=== PATIENT | male | born 1955 | race African-American/Black ===

== ENCOUNTER 2017-12-05 06:35 | Inpatient (IN) | payer MEDICARE, MEDICAID ==
[2017-12-05] MEDS ORDERED: cefOXitin 2 GM Vial ONE (06:48)
[2017-12-05] MEDS ORDERED: Albuterol/Ipratropium 3.0-0.5 MG/3 ML Neb Soln NEB ONE (07:00)
[2017-12-05] MEDS ORDERED: Scopolamine 1.5 MG Transdermal Patch TOP SCH (07:00)
[2017-12-05] MEDS ORDERED: Gabapentin 300 MG Cap PO ONE (07:00)
[2017-12-05] MEDS ORDERED: Acetaminophen 500 MG Tab PO ONE (07:00)
[2017-12-05] MEDS ORDERED: Celecoxib 200 MG Cap PO ONE (07:00)
[2017-12-05] MEDS ORDERED: cefOXitin 2 GM in Sodium Chloride 0.9% 50 ML IV ONE (07:30)
[2017-12-05] MEDS ORDERED: Dextrose 5%-Lactated Ringers 1,000 ML IV SCH (07:30)
[2017-12-05] MEDS ORDERED: fentaNYL 250 MCG/5 ML SDV ONE (07:34)
[2017-12-05] MEDS ORDERED: Dexamethasone 4 MG/ML SDV ONE (07:35)
[2017-12-05] MEDS ORDERED: Propofol 200 MG/20 ML SDV ONE (07:35)
[2017-12-05] MEDS ORDERED: Rocuronium 50 MG/5 ML Vial ONE ×2 (07:35→10:41)
[2017-12-05] MEDS ORDERED: Neostigmine Methylsulfate 1 MG/ML 5 ML Syringe ONE (07:35)
[2017-12-05] MEDS ORDERED: Glycopyrrolate 0.2 MG/ML 5 ML MDV ONE (07:35)
[2017-12-05] MEDS ORDERED: Ondansetron 4 MG/2 ML SDV ONE (07:35)
[2017-12-05] MEDS ORDERED: Succinylcholine 200 MG/10 ML MDV ONE (07:35)
[2017-12-05] MEDS ORDERED: Ropivacaine 60 ML, Dexamethasone 8 MG, EPINEPHrine 0.4 MG, Sodium Chloride 0.9% 17.6 ML NERVRT SCH ×4 (08:15)
[2017-12-05] MEDS ORDERED: Ketamine 500 MG/5 ML MDV IV SCH (08:15)
[2017-12-05] MEDS ORDERED: Lidocaine 0.4%/D5W 2 GM/500 ML BAG IV SCH (08:15)
[2017-12-05] MEDS ORDERED: Lidocaine 2% 100 MG/5 ML Syringe IVPUSH ONE (08:15)
[2017-12-05] MEDS ORDERED: Lactated Ringers 1,000 ML ONE (09:54)
[2017-12-05] MEDS ORDERED: Insulin Aspart 100 Units/ML 3 ML Pen SUBCUT SCH (12:45)
[2017-12-05] MEDS ORDERED: Labetalol 20 MG/4 ML Syringe IVPUSH PRN (14:00)
[2017-12-05] MEDS ORDERED: hydrOXYzine HCl 100 MG/2 ML SDV IM PRN (14:00)
[2017-12-05] MEDS ORDERED: Albuterol/Ipratropium 3.0-0.5 MG/3 ML Neb Soln INH PRN (14:00)
[2017-12-05] MEDS ORDERED: Ondansetron 4 MG/2 ML SDV IVPUSH PRN (14:00)
[2017-12-05] MEDS ORDERED: diphenhydrAMINE 50 MG/ML SDV IVPUSH PRN (14:00)
[2017-12-05] MEDS ORDERED: Metoclopramide 10 MG/2 ML SDV IVPUSH PRN (14:00)
[2017-12-05] MEDS: Albuterol/Ipratropium 3.0-0.5 MG/3 ML Neb Soln INH SCH ×2 (15:06→21:17)
[2017-12-05] MEDS: Gabapentin 250 MG/5 ML Solution ML 470 ML Bottle PO SCH ×2 (15:47→21:17)
[2017-12-05] MEDS: SCOPOLAMINE PATCH CHECK TOP SCH (15:48)
[2017-12-05] MEDS: Heparin Sodium 5,000 Units/ML Vial SUBCUT SCH ×2 (15:48→23:25)
[2017-12-05] MEDS: cefOXitin 2 GM in Sodium Chloride 0.9% 50 ML IV SCH ×2 (15:48→21:17)
[2017-12-05] MEDS: Acetaminophen Soln 650 MG/20.3 ML UD Cup PO SCH ×2 (15:49→21:18)
[2017-12-05] MEDS: Pantoprazole 40 MG Vial IVPUSH SCH (15:49)
[2017-12-05] MEDS ORDERED: MVI, Adult with Vitamin K 10 ML, Thiamine 200 MG, Chromium/Copper/Mang/Selen/Zn 1 ML in... IV SCH ×4 (16:00)
[2017-12-05] MEDS: Insulin Aspart 100 Units/ML 3 ML Pen SUBCUT PRN ×2 (16:56→22:10)
[2017-12-05] MEDS ORDERED: LORazepam 2 MG/ML SDV IVPUSH PRN (19:28)
[2017-12-05] MEDS: Dutasteride 0.5 MG Cap PO SCH (21:18)
[2017-12-05] MEDS ORDERED: Trospium 20 MG Tab PO ONE (21:26)
[2017-12-05] MEDS: Dextrose 5%-Lactated Ringers 1,000 ML IV SCH (22:41)
[2017-12-06] MEDS: cefOXitin 2 GM in Sodium Chloride 0.9% 50 ML IV SCH ×2 (02:44→08:03)
[2017-12-06] MEDS ORDERED: Iohexol 647 MG/ML 50 ML SDV PO PRN (02:51)
[2017-12-06] MEDS: Acetaminophen Soln 650 MG/20.3 ML UD Cup PO SCH ×4 (04:03→21:52)
[2017-12-06] MEDS: Dextrose 5%-Lactated Ringers 1,000 ML IV SCH ×2 (04:38→12:24)
[2017-12-06] MEDS: Insulin Aspart 100 Units/ML 3 ML Pen SUBCUT PRN ×2 (04:42→11:45)
[2017-12-06] MEDS: Albuterol/Ipratropium 3.0-0.5 MG/3 ML Neb Soln INH SCH ×4 (07:25→21:51)
[2017-12-06] MEDS: Gabapentin 250 MG/5 ML Solution ML 470 ML Bottle PO SCH ×3 (08:07→21:50)
[2017-12-06] MEDS: Celecoxib 200 MG Cap PO SCH (08:07)
[2017-12-06] MEDS: Heparin Sodium 5,000 Units/ML Vial SUBCUT SCH ×3 (08:08→23:18)
[2017-12-06] MEDS: Trospium 20 MG Tab PO SCH ×2 (09:51→17:15)
[2017-12-06] MEDS: SCOPOLAMINE PATCH CHECK TOP SCH (09:51)
[2017-12-06] MEDS ORDERED: Magnesium Sulfate/Water 2 GM in Premix Bag 1 BAG IV SCH (10:00)
[2017-12-06] MEDS: Losartan 50 MG Tab PO SCH (11:48)
[2017-12-06] MEDS: Furosemide 40 MG Tab PO SCH (11:48)
[2017-12-06] MEDS: Metoprolol Succinate 50 MG Tab.ER PO SCH (11:49)
[2017-12-06] MEDS ORDERED: Primidone 50 MG Tab PO SCH (12:00)
[2017-12-06] MEDS: Pantoprazole 40 MG Vial IVPUSH SCH (14:59)
[2017-12-06] MEDS: MVI, Adult with Vitamin K 10 ML, Thiamine 200 MG, Chromium/Copper/Mang/Selen/Zn 1 ML in... IV SCH ×4 (17:14)
[2017-12-06] MEDS ORDERED: Trospium 20 MG Tab PO ONE (21:26)
[2017-12-06] MEDS: Dutasteride 0.5 MG Cap PO SCH (21:51)
[2017-12-07] MEDS: Acetaminophen Soln 650 MG/20.3 ML UD Cup PO SCH ×4 (04:16→17:23)
[2017-12-07] MEDS ORDERED: Coagulation Factor VIIa Recombinant (per MCG) 2 MG Vial IVPUSH ONE (07:15)
[2017-12-07] MEDS: Albuterol/Ipratropium 3.0-0.5 MG/3 ML Neb Soln INH SCH ×4 (08:01→20:33)
[2017-12-07] MEDS: Trospium 20 MG Tab PO SCH ×2 (08:35→17:11)
[2017-12-07] MEDS ORDERED: Cyanocobalamin (Vitamin B12) 1,000 MCG/ML SDV IM ONE (09:00)
[2017-12-07] MEDS: Dextrose 5%-Lactated Ringers 1,000 ML IV SCH (09:31)
[2017-12-07] MEDS: Gabapentin 250 MG/5 ML Solution ML 470 ML Bottle PO SCH ×3 (11:45→20:48)
[2017-12-07] MEDS: SCOPOLAMINE PATCH CHECK TOP SCH (11:46)
[2017-12-07] MEDS: Metoprolol Succinate 50 MG Tab.ER PO SCH (13:23)
[2017-12-07] MEDS: Furosemide 40 MG Tab PO SCH (13:23)
[2017-12-07] MEDS: Celecoxib 200 MG Cap PO SCH (13:24)
[2017-12-07] MEDS: Losartan 50 MG Tab PO SCH (13:25)
[2017-12-07] MEDS: Pantoprazole 40 MG Delayed-Release Granules 1 Packet PO SCH ×2 (17:11→17:23)
[2017-12-07] MEDS: MVI, Adult with Vitamin K 10 ML, Thiamine 200 MG, Chromium/Copper/Mang/Selen/Zn 1 ML in... IV SCH ×4 (17:11)
[2017-12-07] MEDS: Dutasteride 0.5 MG Cap PO SCH (20:49)
[2017-12-08] MEDS: Acetaminophen Soln 650 MG/20.3 ML UD Cup PO SCH ×3 (00:06→11:37)
[2017-12-08] MEDS: Albuterol/Ipratropium 3.0-0.5 MG/3 ML Neb Soln INH SCH (07:24)
--- NOTE | 2017-12-08 07:56 | PN ---
DATE OF SERVICE: 12/06/2017 The patient has been afebrile with stable vital signs. No major problems noted overnight. Oral intake was fairly good. His urination appears to be satisfactory. Upper GI shows a little bit slow flow through the small bowel, but otherwise no problems were noted. We will go up to step-2 diet without solids today. Restart his pertinent oral medications with some additional inhalers, maximizing activity, and work with pulmonary toilet. Fletcher Dotson MD /[id number]
[2017-12-08] MEDS: Celecoxib 200 MG Cap PO SCH (08:41)
[2017-12-08] MEDS: Trospium 20 MG Tab PO SCH (08:41)
[2017-12-08] MEDS: Furosemide 40 MG Tab PO SCH (08:41)
[2017-12-08] MEDS: Losartan 50 MG Tab PO SCH (08:41)
[2017-12-08] MEDS: Gabapentin 250 MG/5 ML Solution ML 470 ML Bottle PO SCH (08:42)
[2017-12-08] MEDS: Metoprolol Succinate 50 MG Tab.ER PO SCH (08:42)
--- NOTE | 2017-12-08 08:54 | CR ---
UGI wo KUB HISTORY: eval R -Y GBP FINDINGS: After administration of oral contrast, upright views were obtained. Post operative changes gastric bypass. Surgical drains in place. No evidence for leak. There is some distention of small bow el in the left abdomen. This may represent postop ileus. IMPRESSION: No evidence for leak Small bowel distention may represent ileus. Short-term follow-up recommended
--- NOTE | 2017-12-08 09:19 | PN ---
DATE OF SERVICE: 12/07/2017 The patient has been overall stable with relatively good oral intake. He did have some bloody bowel movements this morning. I suspect this may be some old blood that occurred immediately postoperatively. He about the same, and his heart rates are in the 109 range, but that is what it has been running more or less throughout the entire postoperative period. We did give him a dose of activated factor VII, and we will recheck the hemoglobin at 1400 hours, with the hemoglobin this morning being 10.5. Heparin will be held as well. Otherwise, assuming that no further major problems occur, he will likely be ready for discharge home tomorrow. It would be good to have Dietary review the postoperative gastric bypass diet regimen with the patient, as well as his attendant, who is Rachelle Mcconnell. Fletcher Dotson MD Job #: [id number]
[2017-12-08 10:52] VITALS: BP 131/94
--- NOTE | 2017-12-08 11:46 | DISCH ---
ADMISSION DIAGNOSES: 1. Morbid obesity. 2. Unspecified polyarthropathy and polyarthritis. 3. Hidradenitis. 4. Adjustment disorder with mixed anxiety and depressed mood. 5. Chronic alcohol abuse, in remission. 6. Personality disorder. 7. Essential hypertension. 8. Nocturia. 9. Vitamin D deficiency. 10.Obstructive sleep apnea "treatment.". DISCHARGE DIAGNOSES: Laparoscopic gastric bypass surgery, liver biopsy, repair of diaphragmatic hernia, and excision of mediastinal lipoma for morbid obesity, hepatomegaly, diaphragmatic hernia, and mediastinal lipoma. Date of surgery, 12/05/2017. HISTORY: Rafa Sandy is a 61-year-old male with longstanding history of morbid obesity and increasing comorbidities. After preoperative evaluation and discussion of possible risks and possible complications, he wished to proceed with surgical procedure. HOSPITAL COURSE: Rafa had his surgery on 12/05/2017. He had no operative complications. On postoperative day #1, he was started on step-2 gastric bypass diet without cereal and he was started on his home medications. On 12/07/2017, he started to have bloody stools. His CBC was checked, he was given factor VII, and they seemed to slow down. On postoperative day #3, he did have, prior to discharge, one large maroon stool. Hemoglobin on the day of discharge was 9.5 and hematocrit 30.3. Vital signs were stable. He received dietary instruction. He was able to be discharged to home. PHYSICAL EXAMINATION: GENERAL: Rafa Sandy is a 61-year-old male. VITAL SIGNS: Height is 5 feet 7.5 inches. Weight is 357 pounds. BMI is 55. TPR 96.1, 91, 18, and blood pressure 129/73. HEENT: Negative. NECK: Supple. HEART: Regular rate and rhythm. LUNGS: Clear. ABDOMEN: Sutures intact. CHARISMA drain removed. Abdominal binder is on. EXTREMITIES: Revealed bilateral peripheral edema. DISPOSITION: Discharged to home. CONDITION: Stable and improving. FOLLOWUP APPOINTMENT: Cindy Grimaldo PA-C, on 12/12/2017 at 10 a.m. Hemoglobin at 9:30 before appointment. DISCHARGE MEDICATIONS: Home Medications: 1. Tylenol 650 mg q.6 hours. 2. Discontinue Celebrex. 3. Albuterol inhaler 2 puffs 4 times a day. 4. 10 mg oral daily. 5. Avodart 0.5 mg oral daily. 6. Lasix 80 mg oral daily p.r.n. for edema. 7. Gabapentin 600 three times a day. 8. Lorcet 10/, take one every 4 hours p.r.n. pain. 9. Cozaar, losartan, 50 mg oral daily. 10.Metoprolol-XL 100 mg daily. 11.Viagra 100 mg p.r.n. 12.VESIcare 10 mg oral daily. 13.Triamcinolone 0.1% cream use 3 times a day to affected area. 14.Bupropion 100 mg oral daily. 15.Benadryl 50 mg oral q.6 hours. 16.Discontinue taking tramadol while on [place], vitamin D3, and Celebrex. DISCHARGE DIET: Step-2 gastric bypass diet with no cereal until 12/22/2017. ACTIVITY: No lifting greater than 10 pounds for 2 weeks and then as tolerated. Other activity, walk 6 times daily inside your house. Driving after discharge, do not drive for 2 weeks. Shower/bathing, may shower. DISCHARGE INSTRUCTIONS: Notify provider of fever, nausea, or vomiting. Keep site clean and dry. Use incentive spirometer 10 times every hour while awake.
--- NOTE | 2017-12-08 16:41 | OR ---
DATE OF PROCEDURE: 12/05/2017 PREOPERATIVE DIAGNOSIS: Morbid obesity. POSTOPERATIVE DIAGNOSES: 1. Morbid obesity. 2. Marked hepatomegaly. 3. Paraesophageal diaphragmatic hernia. 4. Mediastinal lipoma. OPERATIVE PROCEDURE: 1. Laparoscopic Merna-en-Y gastric bypass along with gastroenterostomy (30024). 2. Emerson-Cut needle liver biopsy (79421). 3. Repair of paraesophageal diaphragmatic hernia (59151). 4. Excision of mediastinal lipoma (98569). ANESTHESIA: General. ASSISTANTS: Cindy Grimaldo PA-C and PAS. Melvina INDICATION FOR PROCEDURE: This is a 61-year-old male presenting with longstanding morbid obesity and increasingly significant comorbidities. After preoperative evaluation and discussion, he wished to proceed with a gastric bypass procedure. Potential risks including bleeding, infection, leaks from various GI tract closures, problems with bowel obstruction over time as well as possibility of cardiopulmonary, septic, or hemorrhagic complications leading to were all discussed, and the patient wishes to proceed. DETAILS OF PROCEDURE: The patient was taken to the operating room. After general endotracheal anesthesia was induced, he was placed in a lithotomy position. An orogastric tube was placed and the abdomen prepped and draped. At 15 cm inferior, 5 cm left of xiphoid process, a transverse incision was made and the peritoneal cavity entered under direct vision with an Optiview trocar inflated to 15 mmHg pressure with CO2. Laparoscope was reinserted. No underlying trocar insertion site injuries were seen. Following this, 5 additional trocars were placed across the upper mid abdomen and general exploration was undertaken. The patient was noted to have marked hepatomegaly with the liver volume being roughly 2 to 3 times normal and grossly fatty infiltrated. Emerson-Cut needle biopsies were obtained and the bleeding easily controlled with electrocautery. Using direct visualization of the needle and the correct location, bilateral subcostal transverse abdominis plane blocks were placed and attention was then taken to formation of the gastric bypass. The omentum was then divided in the midline up to the level of the transverse colon. This allowed identification of the small bowel to the ligament of Treitz. Small bowel was then traced out 200 cm distal to that point, was divided transversely with a AJITH stapler. Small bowel was then traced out an additional 200 cm where the [id number] enteroenterostomy accomplished with internal firing of the Endo-AJITH 60 mm stapler. The common opening was then closed transversely with the same stapler and the angles anastomosed, and mesenteric defect approximated with some 0 Ethibond sutures, reinforced with fibrin sealant. The Merna limb was brought through an antecolic antegastric approach up to the level of the gastroesophageal junction without tension. The liver was then retracted anteriorly. The patient was noted to have a moderate-sized paraesophageal diaphragmatic hernia containing some perigastric fat and gastric fundus in the plane anterior to the course of the remaining esophagus. This was reduced and peritoneum incised and reflected downward. The patient was noted to have a mediastinal lipoma in the plane of dissection, which was removed as well to facilitate a more satisfactory closure and the anterior repair of the diaphragmatic hernia was then accomplished with 0 Ethibond sutures reinforced with PTFE pledgets. The gastrointestinal balloon catheter was then inflated to 15 mL and pulled up snugly against the EG junction. Gastric wall over the apex balloon was then marked with electrocautery, and balloon catheter deflated and pulled up from the esophagus. The lesser omental tissue adjacent to the gastric cardia was incised following dissection behind the stomach at the level of the cauterized pao in the gastric cardia. Pouch formation was initiated with a transverse firing of the AJITH black load, the second firing was noted up to and through the angle of His for black loads, remaining firings up to and through the angle of His for purple loads. Upon completion of the pouch, both staple lines were noted to be intact. The anvil of the 25-mm EEA stapler was attached to a [place] sump type tube, the latter was brought down through the mouth and taken out through a small opening in the gastric pouch allowing the anvil likewise to be pulled down to within the gastric pouch. The divided end of the Merna limb was then opened and the main body of the EEA stapler passed several centimeters in the lumen of the small bowel, brought up the anvil, united with it, thus creating a gastrojejunostomy. Upon removal of the stapler, double donuts of mucosa were noted within it. The small bowel was closed off with a vascular staple line. Gastrojejunostomy was reinforced with some 3-0 Vicryl seromuscular stitch along with fibrin sealant. Leak test was accomplished with injection of 120 mL of air in the gastric pouch while submerged in cefoxitin-containing saline. No leaks were identified. A single Alfa- Hart drain was taken out through the left lateral trocar site and positioned adjacent to the gastric cardia and the remaining trocars were removed and peritoneal cavity deflated. Incisions were closed with 4-0 Vicryl skin stitch, which was also used to fix the drain. The patient was taken to the recovery room in satisfactory condition. There were no evident complications. Physician production administrative assistant, Cindy Grimaldo, played an essential role in assisting in this case, helping to position the patient, retract structures as needed, as well as suturing and cutting sutures when indicated. Her presence improved patient safety and decreased the operative time. Fletcher Dotson MD Job #: [id number]
== END 2017-12-08 12:15 | disposition home or self-care (01) | DRG 621 ==
LOC: JP.SDSSCHI 06:35 → JP.SDS 06:35 → EDSTATUS 07:15 → JP.2SS 11:30
PROVIDERS: ADMIT Surgery; ATTEND Surgery
PROC: 0D164ZA Bypass Stomach to Jejunum, Percutaneous Endoscopic Approach (ICD-10-PCS; principal; 2017-12-05)
PROC: 0FB04ZX Excision of Liver, Percutaneous Endoscopic Approach, Diagnostic (ICD-10-PCS; 2017-12-05)
PROC: 0BQT4ZZ Repair Diaphragm, Percutaneous Endoscopic Approach (ICD-10-PCS; 2017-12-05)
PROC: 0DB84ZZ Excision of Small Intestine, Percutaneous Endoscopic Approach (ICD-10-PCS; 2017-12-05)
PROC: 0DB63ZZ Excision of Stomach, Percutaneous Approach (ICD-10-PCS; 2017-12-05)
PROC: 0D164ZA Bypass Stomach to Jejunum, Percutaneous Endoscopic Approach (ICD-10-PCS; 2017-12-05)
PROC: 0WBC4ZX Excision of Mediastinum, Percutaneous Endoscopic Approach, Diagnostic (ICD-10-PCS; 2017-12-05)
PROC: 3E0T3BZ Introduction of Anesthetic Agent into Peripheral Nerves and Plexi, Percutaneous Approach (ICD-10-PCS; 2017-12-05)
DX: E66.01 Morbid (severe) obesity due to excess calories (principal); Z68.43 Body mass index [BMI] 50.0-59.9, adult; R16.0 Hepatomegaly, not elsewhere classified; K44.9 Diaphragmatic hernia without obstruction or gangrene; D17.4 Benign lipomatous neoplasm of intrathoracic organs; I10 Essential (primary) hypertension; G47.33 Obstructive sleep apnea (adult) (pediatric); Z79.891 Long term (current) use of opiate analgesic; R60.9 Edema, unspecified; G89.29 Other chronic pain; N40.1 Benign prostatic hyperplasia with lower urinary tract symptoms; F32.9 Major depressive disorder, single episode, unspecified; F41.9 Anxiety disorder, unspecified; Z87.891 Personal history of nicotine dependence; K76.0 Fatty (change of) liver, not elsewhere classified; M13.0 Polyarthritis, unspecified; F10.21 Alcohol dependence, in remission; F60.9 Personality disorder, unspecified; R35.1 Nocturia; E55.9 Vitamin D deficiency, unspecified; L73.2 Hidradenitis suppurativa
CPT/HCPCS: 36415; 74240; 74240-26; 80053; 82962; 83036; 83735; 84100; 85027; 86850; 86900; 86901; 94640; 94762; A9270-GY; C9113; J0171; J0330; J0694; J1100; J1644; J2001; J2060; J2405; J2704; J2710; J2795; J3010; J3410; J3411; J3420; J7030; J7042; J7050; J7120; J7189; J7620; Q9967

== ENCOUNTER 2019-01-18 22:44 | Emergency (ER) | payer MEDICARE, MEDICAID ==
[2019-01-18] MEDS ORDERED: Sodium Chloride 0.9% 500 ML IV ONE (22:48)
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
--- NOTE | 2019-01-18 23:19 | CRLCT ---
INDICATION: Head trauma TECHNIQUE: CT Head without i.v. contrast. COMPARISON: 12/21/15 FINDINGS: CSF space: The ventricles are normal for age. Brain: No evidence of mass, acute infarction or hemorrhage is seen. No mass-effect or midline shift is seen. The brain parenchyma is otherwise normal in appearance with preservation of the escalante-white matter junction. Calvarium: The visualized paranasal sinuses are well aerated. The mastoid air cells are clear. The visualized orbits are grossly unremarkable. The calvarium is unremarkable in appearance with no fractures identified. A moderate left occipital scalp hematoma is noted. IMPRESSION: 1. No evidence of acute infarction, intracranial hemorrhage, or mass-effect seen. Please note that all CT scans at this facility use dose modulation, iterative reconstruction, and/or weight-based dosing when appropriate to reduce radiation dose to as low as reasonably achievable. Dictated by: Patrick Davis MD @ 01/18/2019 23:19:15 (Electronically Signed)
[2019-01-18] MEDS ORDERED: NS + KCl 20mEq/L 1,000 ML IV SCH (23:45)
[2019-01-18] MEDS ORDERED: Potassium Chloride 10 MEQ Cap.ER PO ONE (23:52)
[2019-01-19 00:55] VITALS: BP 148/98; PULSE 98
== END 2019-01-19 01:10 | disposition home or self-care (01) ==
LOC: JP.ED 22:44
DX: S00.03XA Contusion of scalp, initial encounter (principal); E87.6 Hypokalemia; I10 Essential (primary) hypertension; M19.90 Unspecified osteoarthritis, unspecified site; E66.9 Obesity, unspecified; Z79.899 Other long term (current) drug therapy; Y08.89XA Assault by other specified means, initial encounter
CPT/HCPCS: 36415; 70450; 80053; 83735; 84484; 85027; 96361; 96365; 99284; A9270; G0480; J3480; J7040

== ENCOUNTER 2019-10-17 19:21 | Emergency (ER) | payer MEDICARE, MEDICAID ==
[2019-10-17 19:57] VITALS: BP 156/86; PULSE 101
--- NOTE | 2019-10-17 20:29 | EDM.PDOC ---
ED HPI GENERAL MEDICAL PROBLEM - General Chief Complaint: Abdominal Pain Stated Complaint: ABDOMINAL PAIN Time Seen by Provider: 10/17/19 20:25 Source of Information: Reports: Patient History Limitations: Reports: No Limitations - History of Present Illness INITIAL COMMENTS - FREE TEXT/NARRATIVE: Pt arrived with a bulge just above the umbilicus. Pt was not able to reduce it. This did happen once in the past but it went back by itself. It had been out about 1.5 hours. This was very painful. c Onset: Today, Sudden Duration: Hour(s): Location: Reports: Abdomen Associated Symptoms: Reports: Other ( severe pain Pt had no vomiting. ) Abdomen Pain Score (Numeric/FACES): 10 - Related Data Allergies Allergy/AdvReac Type Severity Reaction Status Date / Time No Known Allergies Allergy Verified 01/18/19 22:49 Home Meds: Home Meds Hydrocodone/Acetaminophen [Lorcet 10-650] 10 - 325 mg PO Q4H PRN 09/06/13 [ History] Sildenafil [Viagra] 100 mg PO BEDTIME PRN 09/06/13 [History] Solifenacin [Vesicare] 10 mg PO DAILY 09/06/13 [History] Triamcinolone Acetonide [Kenalog 0.1% Crm] 15 gm TRDERM TID 09/06/13 [History] Furosemide [Lasix] 80 mg PO DAILY PRN 10/29/13 [History] Gabapentin [Neurontin] 600 mg PO TID 12/21/15 [History] Losartan [Cozaar] 50 mg PO DAILY 12/21/15 [History] diphenhydrAMINE [Benadryl] 50 mg PO Q6H PRN 12/21/15 [History] Albuterol Sulfate [Proair Hfa] 2 puff PO QID 12/04/17 [History] Alfuzosin [Uroxatral] 10 mg PO DAILY 12/04/17 [History] Metoprolol Succinate [Toprol XL 100mg] 100 mg PO DAILY 12/04/17 [History] buPROPion [buPROPion XL] 150 mg PO DAILY 12/04/17 [History] Celecoxib [CeleBREX] 200 mg PO DAILY@0800 cap 12/08/17 [Rx] Potassium Chloride [Klor-Con] 40 meq PO BID 01/18/19 [History] Valsartan 1 tab PO DAILY 01/18/19 [History] traMADol HCl [Tramadol HCl] 1 tab PO Q6H PRN 01/18/19 [History] Past Medical History HEENT History: Reports: Impaired Vision, Other (See Below) Other HEENT History: near sighted Cardiovascular History: Reports: Hypertension Respiratory History: Reports: SOB Genitourinary History: Reports: Prostate Disorder Musculoskeletal History: Reports: Arthritis, Neck Pain, Chronic, Other (See Below) Other Musculoskeletal History: bilteral shoulder pain Endocrine/Metabolic History: Reports: Obesity/BMI 30+ - Infectious Disease History Infectious Disease History: Reports: Chicken Pox - Past Surgical History Cardiovascular Surgical History: Reports: None Respiratory Surgical History: Reports: None GI Surgical History: Reports: Bariatric Procedure, Hernia Repair/Other Musculoskeletal Surgical History: Reports: Arthroscopic Knee Social & Family History - Tobacco Use Smoking Status *Q: Current Every Day Smoker Years of Tobacco use: 5 Packs/Tins Daily: 0.5 - Caffeine Use Caffeine Use: Reports: None - Alcohol Use Date of Last Drink: 10/17/19 - Recreational Drug Use Recreational Drug Use: No ED ROS GENERAL - Review of Systems Review Of Systems: See Below Constitutional: Reports: No Symptoms HEENT: Reports: No Symptoms Respiratory: Reports: No Symptoms Cardiovascular: Reports: No Symptoms Endocrine: Reports: No Symptoms GI/Abdominal: Reports: Abdominal Pain, Other ( Pt has a bulge just above the umbilicus that would not go back in, This was very painful. ) : Reports: No Symptoms Musculoskeletal: Reports: No Symptoms Skin: Reports: No Symptoms ED EXAM, GI/ABD - Physical Exam Exam: See Below Text/Narrative:: pt arrived with pain in the abdoman and he had a definite bulge. With some pressure this was reduced. His pain went away immediately. Exam Limited By: No Limitations General Appearance: Alert, Anxious, Moderate Distress Ears: Normal TMs Nose: Normal Inspection Throat/Mouth: Normal Inspection Head: Atraumatic Neck: Normal Inspection Respiratory/Chest: No Respiratory Distress Cardiovascular: Regular Rate, Rhythm GI/Abdominal Exam: Other (pt had a ventral hernia above umbilcus This was pushed on and it did reduce. His pain did go away immediately. ) (Male) Exam: Deferred Rectal (Males) Exam: Deferred Back Exam: Normal Inspection Extremities: Normal Inspection Neurological: Alert, Oriented, Normal Cognition Course - Vital Signs Last Recorded V/S: Last Vital Signs Temp 36.3 C 10/17/19 19:49 Pulse 101 H 10/17/19 19:49 Resp 20 10/17/19 19:49 BP 156/86 H 10/17/19 19:49 Pulse Ox 100 10/17/19 19:49 - Re-Assessments/Exams Free Text/Narrative Re-Assessment/Exam: 10/17/19 20:32 umbilical hernia was reduced Departure - Departure Time of Disposition: 20:27 Disposition: Home, Self-Care 01 Condition: Fair Clinical Impression: Ventral hernia - Discharge Information Instructions: Hernia, Adult Referrals: Arturo Wren MD [Primary Care Provider] - Forms: ED Department Discharge Care Plan Goals: appt with Dr Dotson in next 3 days to see if he feels this should repaired. rtc if this should bulge out again. Sepsis Event Note - Evaluation Sepsis Screening Result: No Definite Risk - Focused Exam Vital Signs: Vital Signs Temp Pulse Resp BP Pulse Ox 10/17/19 19:49 36.3 C 101 H 20 156/86 H 100 Date Exam was Performed: 10/17/19 Time Exam was Performed: 20:29
== END 2019-10-17 20:36 | disposition home or self-care (01) ==
LOC: JP.ED 19:21
DX: K43.9 Ventral hernia without obstruction or gangrene (principal); I10 Essential (primary) hypertension; M19.90 Unspecified osteoarthritis, unspecified site; E66.9 Obesity, unspecified; Z68.34 Body mass index [BMI] 34.0-34.9, adult; Z79.899 Other long term (current) drug therapy; F17.210 Nicotine dependence, cigarettes, uncomplicated
CPT/HCPCS: 99283

== ENCOUNTER 2019-10-21 08:13 | Day surgery (SDC) | payer MEDICARE, MEDICAID ==
[~2019-10-21 08:13] MED LIST: Bupivacaine 0.5%/EPINEPHrine 1:200,000 50 ML MDV ONE; Dexamethasone 4 MG/ML SDV ONE; Glycopyrrolate 0.2 MG/ML 5 ML MDV ONE; Meropenem 500 MG SDV ONE; Neostigmine Methylsulfate 1 MG/ML 5 ML Syringe ONE; Ondansetron 4 MG/2 ML SDV ONE; Propofol 200 MG/20 ML SDV ONE; Rocuronium 50 MG/5 ML Vial ONE; Succinylcholine 200 MG/10 ML MDV ONE; fentaNYL 250 MCG/5 ML SDV ONE
[2019-10-21] MEDS ORDERED: Metoprolol Succinate 50 MG Tab.ER PO ONE (08:28)
[2019-10-21] MEDS ORDERED: Celecoxib 200 MG Cap PO ONE (08:30)
[2019-10-21] MEDS ORDERED: Acetaminophen 500 MG Tab PO ONE (08:30)
[2019-10-21 08:42] LABS: HEMOGLOBIN A1C 5.9 % (4.5-6.2)
[2019-10-21] MEDS ORDERED: Losartan 50 MG Tab PO ONE (08:45)
[2019-10-21] MEDS ORDERED: Dextrose 5%-Lactated Ringers 1,000 ML IV SCH (08:45)
[2019-10-21] MEDS ORDERED: Trospium 20 MG Tab PO ONE (08:45)
[2019-10-21] MEDS ORDERED: Albuterol/Ipratropium 3.0-0.5 MG/3 ML Neb Soln NEB ONE (09:00)
[2019-10-21] MEDS ORDERED: ceFAZolin 2 GM in Premix Bag 1 BAG IV ONE (09:45)
[2019-10-21] MEDS ORDERED: Ketorolac 60 MG/2 ML SDV ONE (11:23)
[2019-10-21] MEDS ORDERED: hydrOXYzine HCL 100 MG/2 ML SDV IM ONE (11:40)
[2019-10-21] MEDS ORDERED: fentaNYL 100 MCG/2 ML SDV IVPUSH ONE (11:40)
[2019-10-21] MEDS ORDERED: HYDROmorphone 0.5 MG/0.5 ML Syringe IVPUSH PRN (14:14)
[2019-10-21] MEDS ORDERED: Ondansetron 4 MG/2 ML SDV IVPUSH PRN (14:14)
[2019-10-21] MEDS ORDERED: HYDROmorphone 1 MG/ML Syringe IV PRN (14:14)
[2019-10-21] MEDS ORDERED: oxyCODONE 5 MG Tab PO PRN (14:15)
[2019-10-21] MEDS ORDERED: hydrOXYzine HCL 100 MG/2 ML SDV IM PRN (14:16)
[2019-10-21] MEDS ORDERED: Cyclobenzaprine 10 MG Tab PO PRN (14:18)
[2019-10-21] MEDS ORDERED: Albuterol/Ipratropium 3.0-0.5 MG/3 ML Neb Soln INH PRN (14:24)
[2019-10-21] MEDS: Albuterol/Ipratropium 3.0-0.5 MG/3 ML Neb Soln INH SCH ×2 (14:31→20:45)
[2019-10-21] MEDS: Gabapentin 300 MG Cap PO SCH ×2 (15:49→20:44)
[2019-10-21] MEDS: Dutasteride 0.5 MG Cap PO SCH (15:50)
[2019-10-21] MEDS: Trospium 20 MG Tab PO SCH (17:11)
[2019-10-21] MEDS: ceFAZolin 2 GM in Premix Bag 1 BAG IV SCH (17:12)
[2019-10-21] MEDS: Dextrose 5%-Lactated Ringers 1,000 ML IV SCH (18:01)
[2019-10-22] MEDS: Dextrose 5%-Lactated Ringers 1,000 ML IV SCH (00:39)
[2019-10-22] MEDS: ceFAZolin 2 GM in Premix Bag 1 BAG IV SCH ×2 (00:40→08:07)
[2019-10-22] MEDS: Trospium 20 MG Tab PO SCH (07:13)
[2019-10-22] MEDS ORDERED: ALFUZOSIN 10MG PO SCH (08:00)
[2019-10-22] MEDS ORDERED: Celecoxib 200 MG Cap PO SCH (08:00)
[2019-10-22] MEDS: Albuterol/Ipratropium 3.0-0.5 MG/3 ML Neb Soln INH SCH ×2 (08:09→10:42)
[2019-10-22] MEDS: Acetaminophen/HYDROcodone 325-5 MG Tab PO PRN ×2 (08:17→13:11)
[2019-10-22] MEDS: Gabapentin 300 MG Cap PO SCH (08:59)
[2019-10-22] MEDS ORDERED: Furosemide 40 MG Tab PO SCH (09:00)
[2019-10-22] MEDS ORDERED: Metoprolol Succinate 50 MG Tab.ER PO SCH (09:00)
[2019-10-22] MEDS ORDERED: Losartan 50 MG Tab PO SCH (09:00)
[2019-10-22] MEDS: Dutasteride 0.5 MG Cap PO SCH (10:49)
--- NOTE | 2019-10-22 10:52 | PN ---
DATE OF SERVICE: 10/22/2019 SUBJECTIVE: Rafa is postoperative day #1. He states his pain is controlled. He has been afebrile, up, ambulating. He was not able to void postop. He did have a straight cath with 400 mL and he has not voided since. He plans to go home as soon as he can urinate. REVIEW OF SYSTEMS: Remainder of review of systems negative for any pertinent positives and negatives. OBJECTIVE: GENERAL: Rafa Sandy is a 63-year-old male. VITAL SIGNS: TPR at 07:03, 97.8; 83; 16; blood pressure 152/107. HEENT: Negative. NECK: Supple. HEART: Regular rate and rhythm. LUNGS: Clear. ABDOMEN: Dressings dry and intact. Abdominal binder is on. EXTREMITIES: Without peripheral edema. ASSESSMENT: Laparoscopic repair of incarcerated umbilical hernia and epigastric hernia with mesh for separate umbilical hernia and epigastric hernia. Date of surgery: 10/21/2019. Surgeon: Fletcher Dotson MD. PLAN: 1. Bladder scan now, then after voiding post bladder scan. If 200 or below, may discharge to home. 2. We will evaluate p.r.n. 3. The patient is planning to be discharged today. Cindy Grimaldo PA-C /[id number]
[2019-10-22 11:08] VITALS: PULSE 85
[2019-10-22 11:13] VITALS: BP 142/104
--- NOTE | 2019-10-31 11:34 | OR ---
DATE OF PROCEDURE: 10/21/2019 SURGEON: Fletcher Dotson MD PREOPERATIVE DIAGNOSIS: Incarcerated epigastric hernia. POSTOPERATIVE DIAGNOSES: 1. Incarcerated epigastric hernia. 2. Separate non-incarcerated umbilical hernia. OPERATIVE PROCEDURES: Diagnostic laparoscopy with: 1. Repair of incarcerated epigastric hernia with mesh (32467). 2. Repair of separate non-incarcerated umbilical hernia with mesh (60833). 3. Placement of Interceed mesh x2 to limit adhesion formation between pelvic and abdominal wall and underlying viscera (48003). ANESTHESIA: General. ACCOUNTS RECEIVABLE COORDINATOR: Cindy Grimaldo PA-C INDICATION FOR PROCEDURE: This is a 63-year-old male presenting with an incarcerated epigastric hernia. He was seen in the emergency room 2 days ago and at that time had quite a bit of pain, and the hernia was partially reduced. He still has some incarcerated component within it. Plan to proceed with diagnostic laparoscopy with laparotomy if necessary and repair of this with mesh. Potential risks including bleeding, infection, injury to underlying viscera, problems with mesh becoming infected and the hernia recurring were all reviewed, and the patient wishes to proceed. DETAILS OF PROCEDURE: The patient was taken to the operating room and placed in a supine position after general endotracheal anesthesia was induced. A Laird catheter was inserted, and the abdomen was prepped and draped. In the left lateral abdomen, a transverse incision was made, and the peritoneal cavity entered under direct vision with an Optiview trocar, inflated to 15 mmHg pressure with CO2. Laparoscope was reinserted. No underlying trocar insertion site injuries were seen. 5 mm trocars were then placed in the left lower quadrant and left upper quadrant, and the abdomen examined. The patient was noted to have some incarcerated omentum within the epigastric hernia site. There was also a smaller non-incarcerated umbilical hernia somewhat below that. At this point, the hernia contents and the epigastric site were reduced with a combination of external pressure and Harmonic scalpel dissection and that area was then freed up of the hernia sac. The abdomen was then marked out, and a Ventralight mesh with balloon positioning system was then selected. We elected to use two 15 cm meshes, one from each hernia, which would provide a better coverage with less overall mesh on the inner surface of the abdomen at each location, and the mesh was soaked in antibiotic-containing saline solution, applied to the abdomen, and each site then sequentially pulled up, inflated, and the mesh circumferentially affixed with absorbable tacking screws in each case. Then, the balloons were deflated and removed. Good fixation was evident and there was good coverage of the hernia defects at both locations. To limit recurrent adhesion formation between the mesh and the remainder of the abdominal and pelvic wall, two Interceed meshes were then placed underneath the mesh and extending down onto the pelvic wall. Once these were in place, the trocars were removed. Fascia at the 12 mm site was closed with 0 Vicryl stitch and the skin with 4-0 Vicryl skin stitch. Dressing was applied. The patient was taken to the recovery room in satisfactory condition. Physician animal assistant, Cindy Grimaldo PA-C, played an essential role in assisting in this case, helping to position the patient, and retract structures as needed as well as suturing and cutting sutures when indicated. Her presence improved patient safety and decreased the operative time. Fletcher Dotson MD /[id number]
== END 2019-10-22 13:20 | disposition home or self-care (01) ==
LOC: JP.SDS 08:13 → JP.ICU 12:15 → JP.MS 18:27 → JP.SDS 10-22 13:20
PROVIDERS: ATTEND Surgery
DX: K43.6 Other and unspecified ventral hernia with obstruction, without gangrene (principal); K42.9 Umbilical hernia without obstruction or gangrene; I10 Essential (primary) hypertension; F41.9 Anxiety disorder, unspecified; F32.9 Major depressive disorder, single episode, unspecified; N40.1 Benign prostatic hyperplasia with lower urinary tract symptoms; M06.9 Rheumatoid arthritis, unspecified; E66.9 Obesity, unspecified; G89.29 Other chronic pain; Z79.899 Other long term (current) drug therapy; Z98.84 Bariatric surgery status; Z87.891 Personal history of nicotine dependence; Z68.35 Body mass index [BMI] 35.0-35.9, adult
CPT/HCPCS: 36415; 44700; 49652; 49653; 51701; 80053; 82525; 82607; 82728; 82746; 83036; 83735; 84100; 84425; 84590; 84630; 88302; 94640; 94762; A9270; C1713; C1781; J0171; J0330; J0690; J1100; J1885; J2020; J2185; J2405; J2704; J2710; J2795; J3010; J3410; J3490; J7050; J7121; J7620-GY

== ENCOUNTER 2020-04-06 02:13 | Emergency (ER) | payer MEDICARE, MEDICAID ==
--- NOTE | 2020-04-06 03:00 | CRLCT ---
INDICATION: Altered mental status. Unconscious. TECHNIQUE: CT head without contrast. COMPARISON: January 18, 2019. FINDINGS: CSF spaces: Within normal limits for age. Brain parenchyma and extra-axial spaces: The escalante-white differentiation is normal. No sign of mass, hemorrhage, or midline shift. No extra-axial fluid collection. Skull base and calvarium: The visualized paranasal sinuses and mastoid air cells demonstrate no acute or significant findings. The visualized orbits are grossly unremarkable. No skull fractures. IMPRESSION: Unremarkable noncontrast head CT. Dictated by Jus Hagan MD @ 04/06/2020 2:57:46 AM Please note that all CT scans at this facility use dose modulation, iterative reconstruction, and/or weight-based dosing when appropriate to reduce radiation dose to as low as reasonably achievable. Dictated by: Jus Hagan MD @ 04/06/2020 02:57:51 (Electronically Signed)
--- NOTE | 2020-04-06 03:02 | EDM.PDOC ---
ED HPI GENERAL MEDICAL PROBLEM - General Chief Complaint: Neurological Problem Stated Complaint: [facility] Time Seen by Provider: 04/06/20 02:15 Source of Information: Reports: EMS History Limitations: Reports: Altered Mental Status - History of Present Illness INITIAL COMMENTS - FREE TEXT/NARRATIVE: Rafa is a 64-year-old male presenting to the ED with unknown circumstances but apparently was found unresponsive at his apartment. It is unknown who contacted 911, however, when EMS arrived at his apartment they found him to be minimally responsive but combative when they tried to move him. The patient was also found to be hypotensive but had a normal blood glucose. The patient had a similar episode in 2019 where he presented hypotensive, altered mental status, in atrial fibrillation after having used methamphetamine. The patient has remained hypotensive in the emergency room prompting a rapid assessment and rule out of an intracranial bleed. Duration: Other (Unknown) - Related Data Allergies Allergy/AdvReac Type Severity Reaction Status Date / Time No Known Allergies Allergy Verified 04/06/20 02:44 Home Meds: Home Meds Hydrocodone/Acetaminophen [Lorcet 10-650] 10 - 325 mg PO Q4H PRN 09/06/13 [History] Sildenafil [Viagra] 100 mg PO BEDTIME PRN 09/06/13 [History] Solifenacin [Vesicare] 10 mg PO DAILY 09/06/13 [History] Triamcinolone Acetonide [Kenalog 0.1% Crm] 15 gm TRDERM TID 09/06/13 [History] Gabapentin [Neurontin] 600 mg PO TID 12/21/15 [History] Losartan [Cozaar] 50 mg PO DAILY 12/21/15 [History] Albuterol Sulfate [Proair Hfa] 2 puff PO QID 12/04/17 [History] Alfuzosin [Uroxatral] 10 mg PO DAILY 12/04/17 [History] Metoprolol Succinate [Toprol XL 100mg] 100 mg PO DAILY 12/04/17 [History] Celecoxib [CeleBREX] 200 mg PO DAILY@0800 cap 12/08/17 [Rx] Potassium Chloride [Klor-Con] 20 meq PO BID 01/18/19 [History] Valsartan 1 tab PO DAILY 01/18/19 [History] traMADol HCl [Tramadol HCl] 1 tab PO Q6H PRN 01/18/19 [History] Calcium Citrate/Vitamin D3 [Calcium Citrate + D] 2 each PO DAILY 10/19/19 [History] Cholecalciferol (Vitamin D3) [Vitamin D] 5,000 unit PO DAILY 10/19/19 [History] Dutasteride [Avodart] 0.5 mg PO DAILY 10/19/19 [History] Ferrous Fumarate/Vitamin C [Vitron-C] 1 tab PO DAILY 10/19/19 [History] Folic Acid/Multivit-Min/Lutein [Multi-Vitamin Gummies] 1 each PO BID 10/19/19 [History] Furosemide [Lasix] 40 mg PO DAILY PRN 10/19/19 [History] Thiamine Mononitrate (Vit B1) [Vitamin B-1] 100 mg PO DAILY 10/19/19 [History] Vitamin A 10,000 unit PO DAILY 10/19/19 [History] Past Medical History HEENT History: Reports: Impaired Vision, Other (See Below) Other HEENT History: near sighted Cardiovascular History: Reports: Hypertension Respiratory History: Reports: SOB Genitourinary History: Reports: Prostate Disorder Musculoskeletal History: Reports: Arthritis, Neck Pain, Chronic, Other (See Below) Other Musculoskeletal History: bilteral shoulder pain Endocrine/Metabolic History: Reports: Obesity/BMI 30+ - Infectious Disease History Infectious Disease History: Reports: Chicken Pox, Measles - Past Surgical History Cardiovascular Surgical History: Reports: None Respiratory Surgical History: Reports: None GI Surgical History: Reports: Bariatric Procedure, Colostomy, Hernia Repair/Other Musculoskeletal Surgical History: Reports: Arthroscopic Knee Social & Family History - Family History Family Medical History: Noncontributory - Caffeine Use Caffeine Use: Reports: Soda ED ROS GENERAL - Review of Systems Review Of Systems: Unable To Obtain (Patient unresponsive for the most part. He only answers question when stimulated and only when he wants to.) Reason Not Obtained: Altered mental status - Physical Exam Exam: See Below Exam Limited By: Altered Mental Status General Appearance: Obtunded Eye Exam: Bilateral Eye: Abnormal EOM (Disconjugate gaze), PERRL (Pupils are 3 to 4 mm and sluggish) Throat/Mouth: Normal Inspection, Normal Lips, Normal Oropharynx Head Exam: Atraumatic, Normocephalic Neck: Normal Inspection, Non-Tender, Full Range of Motion Respiratory/Chest: No Respiratory Distress, Lungs Clear, Normal Breath Sounds, No Accessory Muscle Use, Chest Non-Tender Cardiovascular: Normal Peripheral Pulses, No Edema, No JVD, No Murmur, No Rub, Irregularly Irregular GI/Abdominal: Normal Bowel Sounds, Soft, Non-Tender, No Organomegaly, No Distention Neuro Exam (Abbreviated): Inattentive, Confused, Slow to Respond Back Exam: Normal Inspection, Full Range of Motion Extremities: Normal Range of Motion, Non-Tender, Pedal Edema (3+ pedal edema bilaterally to the knees) Skin Exam: Warm, Dry #1 Interpretation EKG Date: 04/06/20 Time: 02:43 Rhythm: A-Fib Rate (Beats/Min): 85 (55 to 85 bpm) QRS: Normal ST-T: Other (Nonspecific ST-T changes in the inferior lateral leads) Course - Vital Signs Last Recorded V/S: Last Vital Signs Temp 36.2 C 04/06/20 03:11 Pulse 66 04/06/20 06:11 Resp 14 04/06/20 06:11 BP 71/41 L 04/06/20 06:11 Pulse Ox 99 04/06/20 06:11 - Orders/Labs/Meds Orders: Active Orders 24 hr Category Date Time Status EKG Documentation Completion [RC] ASDIRECTED Care 04/06/20 02:18 Active DRUG SCREEN, URINE [URCHEM] Stat Lab 04/06/20 02:15 Ordered UA W/MICROSCOPIC [URIN] Stat Lab 04/06/20 02:15 Ordered Sodium Chloride 0.9% [Normal Saline] 1,000 ml Med 04/06/20 03:30 Active IV ASDIRECTED EKG 12 Lead [EK] Routine Ther 04/06/20 02:15 Ordered Medication Orders Sodium Chloride (Normal Saline) 1,000 mls @ 150 mls/hr IV ASDIRECTED GILMER Last Admin: 04/06/20 03:31 Dose: 150 mls/hr Documented by: BHARGAVI Labs: Laboratory Tests 04/06/20 04/06/20 04/06/20 Range/Units 02:20 02:20 02:20 WBC 6.1 (4.5-11.0) K/uL RBC 5.27 (4.30-5.90) M/uL Hgb 14.2 (12.0-15.0) g/dL Hct 44.0 (40.0-54.0) % MCV 84 (80-98) fL MCH 27 (27-31) pg MCHC 32 (32-36) % Plt Count 178 (150-400) K/uL Neut % (Auto) 65 (36-66) % Lymph % (Auto) 23 L (24-44) % [place] % (Auto) 10 H (2-6) % Eos % (Auto) 1 L (2-4) % Baso % (Auto) 1 (0-1) % PT 11.4 (9.5-12.0) sec INR 1.05 (0.80-1.20) APTT 24.0 L (27.0-36.0) sec Sodium 143 (140-148) mmol/L Potassium 4.4 (3.6-5.2) mmol/L Chloride 108 (100-108) mmol/L Carbon Dioxide 25 (21-32) mmol/L Anion Gap 9.7 (5.0-14.0) mmol/L BUN 19 H (7-18) mg/dL Creatinine 1.4 H D (0.8-1.3) mg/dL Est Cr Clr Drug Dosing 55.76 mL/min Estimated GFR (MDRD) > 60 (>60) Glucose 124 H (74-106) mg/dL Lactic Acid (0.4-2.0) mmol/L Calcium 7.9 L (8.5-10.1) mg/dL Total Bilirubin 0.3 (0.2-1.0) mg/dL AST 15 (15-37) U/L ALT 24 (12-78) U/L Alkaline Phosphatase 81 (46-116) U/L Troponin I (0.000-0.056) ng/mL NT-Pro-B Natriuret Pep (5-125) pg/mL Total Protein 5.8 L (6.4-8.2) g/dL Albumin 2.7 L (3.4-5.0) g/dL Globulin 3.1 (2.3-3.5) g/dL Albumin/Globulin Ratio 0.9 L (1.2-2.2) Ethyl Alcohol mg/dL 04/06/20 04/06/20 04/06/20 Range/Units 02:20 02:20 02:20 WBC (4.5-11.0) K/uL RBC (4.30-5.90) M/uL Hgb (12.0-15.0) g/dL Hct (40.0-54.0) % MCV (80-98) fL MCH (27-31) pg MCHC (32-36) % Plt Count (150-400) K/uL Neut % (Auto) (36-66) % Lymph % (Auto) (24-44) % [place] % (Auto) (2-6) % Eos % (Auto) (2-4) % Baso % (Auto) (0-1) % PT (9.5-12.0) sec INR (0.80-1.20) APTT (27.0-36.0) sec Sodium (140-148) mmol/L Potassium (3.6-5.2) mmol/L Chloride (100-108) mmol/L Carbon Dioxide (21-32) mmol/L Anion Gap (5.0-14.0) mmol/L BUN (7-18) mg/dL Creatinine (0.8-1.3) mg/dL Est Cr Clr Drug Dosing mL/min Estimated GFR (MDRD) (>60) Glucose (74-106) mg/dL Lactic Acid 2.0 (0.4-2.0) mmol/L Calcium (8.5-10.1) mg/dL Total Bilirubin (0.2-1.0) mg/dL AST (15-37) U/L ALT (12-78) U/L Alkaline Phosphatase (46-116) U/L Troponin I (0.000-0.056) ng/mL NT-Pro-B Natriuret Pep 1477 H (5-125) pg/mL Total Protein (6.4-8.2) g/dL Albumin (3.4-5.0) g/dL Globulin (2.3-3.5) g/dL Albumin/Globulin Ratio (1.2-2.2) Ethyl Alcohol < 3 mg/dL 04/06/20 Range/Units 02:20 WBC (4.5-11.0) K/uL RBC (4.30-5.90) M/uL Hgb (12.0-15.0) g/dL Hct (40.0-54.0) % MCV (80-98) fL MCH (27-31) pg MCHC (32-36) % Plt Count (150-400) K/uL Neut % (Auto) (36-66) % Lymph % (Auto) (24-44) % [place] % (Auto) (2-6) % Eos % (Auto) (2-4) % Baso % (Auto) (0-1) % PT (9.5-12.0) sec INR (0.80-1.20) APTT (27.0-36.0) sec Sodium (140-148) mmol/L Potassium (3.6-5.2) mmol/L Chloride (100-108) mmol/L Carbon Dioxide (21-32) mmol/L Anion Gap (5.0-14.0) mmol/L BUN (7-18) mg/dL Creatinine (0.8-1.3) mg/dL Est Cr Clr Drug Dosing mL/min Estimated GFR (MDRD) (>60) Glucose (74-106) mg/dL Lactic Acid (0.4-2.0) mmol/L Calcium (8.5-10.1) mg/dL Total Bilirubin (0.2-1.0) mg/dL AST (15-37) U/L ALT (12-78) U/L Alkaline Phosphatase (46-116) U/L Troponin I < 0.017 (0.000-0.056) ng/mL NT-Pro-B Natriuret Pep (5-125) pg/mL Total Protein (6.4-8.2) g/dL Albumin (3.4-5.0) g/dL Globulin (2.3-3.5) g/dL Albumin/Globulin Ratio (1.2-2.2) Ethyl Alcohol mg/dL Meds: Medications Generic Name Dose Route Start Last Admin Trade Name Freq PRN Reason Stop Dose Admin Sodium Chloride 1,000 mls @ 150 mls/hr 04/06/20 03:30 04/06/20 03:31 Normal Saline IV 150 mls/hr ASDIRECTED GILMER Administration Discontinued Medications Generic Name Dose Route Start Last Admin Trade Name Freq PRN Reason Stop Dose Admin Sodium Chloride 1,000 mls @ 1,000 mls/hr 04/06/20 03:24 04/06/20 02:29 Normal Saline IV 04/06/20 04:23 1,000 mls/hr .BOLUS ONE Administration Sodium Chloride 1,000 mls @ 1,000 mls/hr 04/06/20 03:25 04/06/20 02:45 Normal Saline IV 04/06/20 04:24 1,000 mls/hr .BOLUS ONE Administration Calcium Gluconate 1 gm/ Sodium 110 mls @ 100 mls/hr 04/06/20 04:37 04/06/20 05:00 Chloride IV 04/06/20 05:42 100 mls/hr ONETIME ONE Administration - Radiology Interpretation Free Text/Narrative:: No acute abnormalities seen on his CT of the brain without contrast. CT Results Date: 04/06/20 CT Results Time: 02:27 - Re-Assessments/Exams Free Text/Narrative Re-Assessment/Exam: 04/06/20 04:10 the patient continued to have a tenuous blood pressure course despite being alert although not cooperative. We had to repeatedly informed the patient that he was in the emergency room and that he needed to lie down as he was attempting to get off the bed with a blood pressure of 75/41. The patient did receive several liters of IV normal saline with minimal response to his blood pressure. He has not yet provided us with a urine sample to see what possibly he may be on as far as prescribed and nonprescribed drugs. The patient did present to the ED with a very large pill bottle for Lortab 10 mg / 325 mg for 180 tablets that was dispensed on 02/25/2020. It appears that he has been taking on average 8 tablets a day instead of the 6/day that he is prescribed. He may have taken of substantial quantity of this tonight causing his altered mental status. We are still awaiting the patient to provide us with urine to be able to determine this. Narcan was available at the scene by EMS but they did not administer it. Based on the risks of Narcan administration in this context, I will hold off on it tonight unless he becomes tenuous with respiratory drive. 04/06/20 04:56 I did prescribe calcium gluconate 1 g IV for his serum calcium was 7.9. His corrected calcium is 8.5 which is at the bottom abdomen normal so he would probably benefit him of IV calcium gluconate. 04/06/20 05:21 BNP is elevated at 1477 which accounts for his 3+ pitting edema. He likely is in congestive heart failure secondary to atrial fibrillation as well as fluid retention. Systemically, however, he appears to be dry with an elevated BUN and creatinine so I would be reluctant to put him on diuretics in his current state. 04/06/20 05:34 troponin I is normal at less than 0.017. The patient is still not provided us with a urine for urinalysis and urine drug screen. His blood pressure remains at 76/45 which is similar to when he presented on 01/08/2019. 04/06/20 06:54 the patient received the calcium gluconate 1 g with improvement in his blood pressure which is now 89/50. His heart rate is still 65-72 in atrial fibrillation. He still has not provided us any urine and likely will not. At this time I feel that he is improved enough where he can be safely discharged into the care of another adult. The patient's friend has been co ntacted and is agreeable to keep an eye on him today. Indications to return to the ED were discussed. Departure - Departure Time of Disposition: 07:00 Disposition: Home, Self-Care 01 Condition: Fair Clinical Impression: Hypocalcemia, Dysconjugate gaze, Chronic prescription opiate use, Peripheral edema, Personality disorder, Status post gastric bypass for obesity, Status post repair of ventral hernia, Pain management contract agreement, Adjustment diso rder with mixed anxiety and depressed mood Altered mental status, unspecified Qualifiers: Altered mental status type: unspecified Qualified Code(s): R41.82 - Altered mental status, unspecified Hypotension Qualifiers: Hypotension type: hypotension due to drug Qualified Code(s): I95.2 - Hypotension due to drugs Atrial fibrillation Qualifiers: Atrial fibrillation type: longstanding persistent Qualified Code(s): I48.11 - Longstanding persistent atrial fibrillation Congestive heart failure (CHF) Qualifiers: Heart failure type: right-sided Heart failure chronicity: unspecified Qualified Code(s): I50.810 - Right heart failure, unspecified - Discharge Information *PRESCRIPTION DRUG MONITORING PROGRAM REVIEWED*: Yes *COPY OF PRESCRIPTION DRUG MONITORING REPORT IN PATIENT DIGNA: No Instructions: Heart Failure, Self Care, [id number], Hypotension, [id number], Dehydration, Adult, [id number], Heart Failure, Self Care, Atrial Fibrillation, [id number], Hypotension Referrals: PCP,None [Primary Care Provider] - Forms: ED Department Discharge Care Plan Goals: Please take your pain medication only as prescribed. Overuse of the pain medication can severely affect your blood pressure, mentation, and can even be deadly. It was noted that your prescription for Lortab 10 mg is missing quite a few tablets indicating that there is significant overuse of this chronically prescribed medication. This is likely what contributed to your unresponsiveness that prompted you to be brought into the emergency room by EMS. Sepsis Event Note (ED) - Evaluation Sepsis Screening Result: No Definite Risk - Focused Exam Vital Signs: Vital Signs Temp Pulse Resp BP Pulse Ox 04/06/20 06:11 66 14 71/41 L 99 04/06/20 05:41 62 16 70/43 L 99 04/06/20 05:07 67 15 76/45 L 99 04/06/20 04:52 66 20 66/38 L 97 04/06/20 04:37 75 16 80/51 L 97 04/06/20 04:22 61 13 67/38 L 04/06/20 03:59 68 21 H 82/38 L 100 04/06/20 03:54 74 14 76/44 L 99 04/06/20 03:42 75 16 73/28 L 04/06/20 03:35 73 18 90/44 L 04/06/20 03:31 73 17 82/37 L 04/06/20 03:27 65 17 91/64 04/06/20 03:21 69 14 71/40 L 90 L 04/06/20 03:16 70 14 75/48 L 04/06/20 03:11 36.2 C 60 21 H 68/41 L 94 L 04/06/20 03:05 76 21 H 84/47 L 04/06/20 03:02 64 11 L 80/44 L 04/06/20 02:56 69 19 83/46 L 91 L 04/06/20 02:51 68 19 79/46 L 04/06/20 02:44 69 18 74/47 L 97 04/06/20 02:41 73 18 87/48 L 89 L 04/06/20 02:39 69 17 87/48 L 92 L 04/06/20 02:34 753 H 21 H 81/52 L 96 04/06/20 02:29 73 19 72/44 L 96 04/06/20 02:23 35.9 C L 64 24 H 68/45 L 94 L 04/06/20 02:19 73 27 H 81/46 L 94 L 04/06/20 02:13 72 20 82/55 L 93 L - Problem List & Annotations (1) Altered mental status, unspecified SNOMED Code(s): 235641370 Code(s): R41.82 - ALTERED MENTAL STATUS, UNSPECIFIED Status: Acute Priority: High Current Visit: Yes Qualifiers: Altered mental status type: unspecified Qualified Code(s): R41.82 - Altered mental status, unspecified (2) Atrial fibrillation SNOMED Code(s): 32884480 Code(s): I48.91 - UNSPECIFIED ATRIAL FIBRILLATION Status: Chronic Priority: Medium Current Visit: Yes Qualifiers: Atrial fibrillation type: longstanding persistent Qualified Code(s): I48.11 - Longstanding persistent atrial fibrillation (3) Chronic prescription opiate use SNOMED Code(s): 997694358 Code(s): Z79.891 - ALF (CURRENT) USE OF OPIATE ANALGESIC Status: Chronic Priority: High Current Visit: Yes (4) Congestive heart failure (CHF) SNOMED Code(s): 63538916 Code(s): I50.9 - HEART FAILURE, UNSPECIFIED Status: Chronic Priority: Medium Current Visit: Yes Qualifiers: Heart failure type: right-sided Heart failure chronicity: unspecified Qualified Code(s): I50.810 - Right heart failure, unspecified (5) Dysconjugate gaze SNOMED Code(s): 920639688 Code(s): H51.8 - OTHER SPECIFIED DISORDERS OF BINOCULAR MOVEMENT Status: Chronic Priority: Medium Current Visit: Yes (6) Hypocalcemia SNOMED Code(s): 7120863 Code(s): E83.51 - HYPOCALCEMIA Status: Acute Priority: Medium Current Visit: Yes (7) Hypotension SNOMED Code(s): 84855726 Code(s): I95.9 - HYPOTENSION, UNSPECIFIED Status: Acute Priority: Medium Current Visit: Yes Qualifiers: Hypotension type: hypotension due to drug Qualified Code(s): I95.2 - Hypotension due to drugs (8) Peripheral edema SNOMED Code(s): 253448849 Code(s): R60.9 - EDEMA, UNSPECIFIED Status: Chronic Priority: Medium Current Visit: Yes - Problem List Review Problem List Initiated/Reviewed/Updated: Yes - My Orders Last 24 Hours: My Active Orders 04/06/20 02:15 DRUG SCREEN, URINE [URCHEM] Stat UA W/MICROSCOPIC [URIN] Stat EKG 12 Lead [EK] Routine 04/06/20 02:18 EKG Documentation Completion [RC] ASDIRECTED 04/06/20 03:30 Sodium Chloride 0.9% [Normal Saline] 1,000 ml IV ASDIRECTED - Assessment/Plan Last 24 Hours: My Active Orders 04/06/20 02:15 DRUG SCREEN, URINE [URCHEM] Stat UA W/MICROSCOPIC [URIN] Stat EKG 12 Lead [EK] Routine 04/06/20 02:18 EKG Documentation Completion [RC] ASDIRECTED 04/06/20 03:30 Sodium Chloride 0.9% [Normal Saline] 1,000 ml IV ASDIRECTED
[2020-04-06] MEDS ORDERED: Sodium Chloride 0.9% 1,000 ML IV ONE ×2 (03:24→03:25)
[2020-04-06] MEDS ORDERED: Sodium Chloride 0.9% 1,000 ML IV SCH (03:30)
[2020-04-06] MEDS ORDERED: Calcium Gluconate 1 GM in Sodium Chloride 0.9% 100 ML IV ONE (04:37)
[2020-04-06 06:42] VITALS: BP 89/50; PULSE 58
== END 2020-04-06 07:18 | disposition home or self-care (01) ==
LOC: JP.ED 02:13
DX: I11.0 Hypertensive heart disease with heart failure (principal); I50.810 Right heart failure, unspecified; I48.11 Longstanding persistent atrial fibrillation; I95.2 Hypotension due to drugs; F43.23 Adjustment disorder with mixed anxiety and depressed mood; F60.9 Personality disorder, unspecified; E83.51 Hypocalcemia; H55.89 Other irregular eye movements; E66.9 Obesity, unspecified; Z98.890 Other specified postprocedural states; Z79.899 Other long term (current) drug therapy; Z68.28 Body mass index [BMI] 28.0-28.9, adult
CPT/HCPCS: 36415; 70450; 80053; 80307; 83605; 83880; 84484; 85025; 85610; 85730; 93005; 96365; 99285; J0610; J7030; 82962

== ENCOUNTER 2021-09-27 14:29 | Emergency (ER) | payer MEDICARE, MEDICAID ==
[2021-09-27 14:52] VITALS: BP 139/97; PULSE 98
== END 2021-09-27 15:13 | disposition home or self-care (01) ==
LOC: JP.ED 14:29
DX: R31.9 Hematuria, unspecified (principal); I10 Essential (primary) hypertension; E66.9 Obesity, unspecified; Z68.31 Body mass index [BMI] 31.0-31.9, adult; Z79.899 Other long term (current) drug therapy
CPT/HCPCS: 99281; 99283

== ENCOUNTER 2021-10-21 11:29 | Emergency (ER) | payer MEDICARE, MEDICAID ==
[2021-10-21 14:05] VITALS: BP 174/113; PULSE 93
== END 2021-10-21 14:30 | disposition home or self-care (01) ==
LOC: JP.ED 11:29
DX: R10.84 Generalized abdominal pain (principal); R10.12 Left upper quadrant pain; I10 Essential (primary) hypertension; E66.9 Obesity, unspecified; Z68.31 Body mass index [BMI] 31.0-31.9, adult; Z79.899 Other long term (current) drug therapy; Z72.0 Tobacco use
CPT/HCPCS: 36415; 74018; 74018-26; 80053; 83605; 85025; 99281; 99284-25

== ENCOUNTER 2022-04-27 00:30 | Emergency (ER) | payer MEDICARE, MEDICAID ==
[2022-04-27 01:03] VITALS: BP 147/112; PULSE 85
[2022-04-27] MEDS ORDERED: fentaNYL 100 MCG/2 ML SDV IM ONE (01:22)
== END 2022-04-27 02:27 | disposition home or self-care (01) ==
LOC: JP.ED 00:30
DX: T83.098A Other mechanical complication of other urinary catheter, initial encounter (principal); I10 Essential (primary) hypertension; M19.90 Unspecified osteoarthritis, unspecified site; E66.9 Obesity, unspecified; Z68.33 Body mass index [BMI] 33.0-33.9, adult; Z72.0 Tobacco use; Z79.899 Other long term (current) drug therapy
CPT/HCPCS: 96372; 99283; J3010

== ENCOUNTER 2022-04-27 21:58 | Emergency (ER) | payer MEDICARE, MEDICAID ==
[2022-04-27 22:55] VITALS: BP 146/100; PULSE 130
== END 2022-04-27 23:52 | disposition home or self-care (01) ==
LOC: JP.ED 21:58
DX: K58.9 Irritable bowel syndrome, unspecified (principal); I10 Essential (primary) hypertension; F17.210 Nicotine dependence, cigarettes, uncomplicated; E66.9 Obesity, unspecified; Z68.30 Body mass index [BMI] 30.0-30.9, adult
CPT/HCPCS: 99283

== ENCOUNTER 2022-06-07 21:27 | Emergency (ER) | payer MEDICARE, MEDICAID ==
[2022-06-07 23:01] VITALS: BP 116/92; PULSE 91
[2022-06-07] MEDS ORDERED: Furosemide 40 MG Tab PO ONE (23:17)
== END 2022-06-07 23:34 | disposition home or self-care (01) ==
LOC: JP.ED 21:27
DX: I11.0 Hypertensive heart disease with heart failure (principal); I50.9 Heart failure, unspecified; E66.9 Obesity, unspecified; Z68.30 Body mass index [BMI] 30.0-30.9, adult; Z79.899 Other long term (current) drug therapy
CPT/HCPCS: 36415; 80048; 83880; 85025; 99284; A9270

== ENCOUNTER 2022-09-02 23:51 | Emergency (ER) | payer MEDICARE, MEDICAID ==
[2022-09-03 00:04] VITALS: BP 145/105; PULSE 58
[2022-09-03] MEDS ORDERED: LORazepam 2 MG/ML SDV IM ONE (00:09)
[2022-09-03] MEDS ORDERED: fentaNYL 100 MCG/2 ML SDV IM ONE (00:09)
== END 2022-09-03 00:57 | disposition home or self-care (01) ==
LOC: JP.ED 23:51
DX: T83.098A Other mechanical complication of other urinary catheter, initial encounter (principal); I11.0 Hypertensive heart disease with heart failure; I50.9 Heart failure, unspecified; M19.90 Unspecified osteoarthritis, unspecified site; E66.9 Obesity, unspecified; Z68.34 Body mass index [BMI] 34.0-34.9, adult; Z72.0 Tobacco use; Z79.899 Other long term (current) drug therapy
CPT/HCPCS: 51702; 96372; 99283; J2060; J3010; 99282

== ENCOUNTER 2022-09-04 08:34 | Emergency (ER) | payer MEDICARE, MEDICAID ==
[2022-09-04 09:06] VITALS: BP 134/103; PULSE 55
[2022-09-04] MEDS ORDERED: Gabapentin 300 MG Cap PO ONE (09:25)
[2022-09-04] MEDS ORDERED: Gabapentin 400 MG Cap ONE (09:51)
[2022-09-05] MEDS ORDERED: Gabapentin 400 MG Cap PO ONE (09:41)
== END 2022-09-04 10:05 | disposition home or self-care (01) ==
LOC: JP.ED 08:34
DX: T83.091A Other mechanical complication of indwelling urethral catheter, initial encounter (principal); G89.4 Chronic pain syndrome; I11.0 Hypertensive heart disease with heart failure; I50.9 Heart failure, unspecified; E66.9 Obesity, unspecified; Z68.35 Body mass index [BMI] 35.0-35.9, adult
CPT/HCPCS: 99283; A9270

== ENCOUNTER 2022-10-04 13:18 | Inpatient (IN) | payer MEDICARE, MEDICAID ==
[2022-10-04] MEDS ORDERED: Sodium Chloride 0.9% 10 ML Syringe FLUSH PRN ×2 (13:58→15:54)
[2022-10-04] MEDS ORDERED: Furosemide 40 MG/4 ML VIAL IVPUSH ONE (13:58)
[2022-10-04 14:42] LABS: ESTIMATED GFR 67 mL/min (>60)
[2022-10-04 14:55] LABS: CORONAVIRUS COVID-19 NAA NEGATIVE (NEGATIVE)
[2022-10-04] MEDS ORDERED: Acetaminophen 325 MG Tab PO PRN (15:54)
[2022-10-04] MEDS ORDERED: Albuterol/Ipratropium 3.0-0.5 MG/3 ML Neb Soln NEB PRN (15:54)
[2022-10-04] MEDS ORDERED: Ondansetron 4 MG/2 ML SDV IV PRN (15:54)
[2022-10-04] MEDS: Enoxaparin 40 MG/0.4 ML Syringe SUBCUT SCH (17:50)
[2022-10-04] MEDS: Albuterol 90 MCG/6.7 GM Inhaler INH SCH ×2 (17:50→20:09)
[2022-10-04] MEDS: Losartan 50 MG Tab PO SCH (18:33)
[2022-10-04] MEDS: Metoprolol Succinate 50 MG Tab.ER PO SCH (18:33)
[2022-10-04] MEDS: Bumetanide 2.5 MG/10 ML MDV IVPUSH SCH (20:06)
[2022-10-04] MEDS: Potassium Chloride 20 MEQ Tab.ER PO SCH (20:10)
[2022-10-04] MEDS: Trospium 20 MG Tab PO SCH (20:10)
[2022-10-04] MEDS: Gabapentin 400 MG Cap PO SCH (20:10)
[2022-10-05] MEDS: Albuterol 90 MCG/6.7 GM Inhaler INH SCH ×4 (07:37→21:32)
[2022-10-05] MEDS: Bumetanide 2.5 MG/10 ML MDV IVPUSH SCH ×2 (08:45→19:32)
[2022-10-05] MEDS: Dutasteride 0.5 MG Cap PO SCH (08:46)
[2022-10-05] MEDS: Potassium Chloride 20 MEQ Tab.ER PO SCH ×2 (08:46→21:32)
[2022-10-05] MEDS: Gabapentin 400 MG Cap PO SCH ×3 (08:47→21:32)
[2022-10-05] MEDS: Trospium 20 MG Tab PO SCH ×2 (08:47→21:32)
[2022-10-05] MEDS: Alfuzosin 10 MG Tab.ER PO SCH (08:47)
[2022-10-05] MEDS: Metoprolol Succinate 50 MG Tab.ER PO SCH (08:50)
[2022-10-05] MEDS: Enoxaparin 40 MG/0.4 ML Syringe SUBCUT SCH (08:50)
[2022-10-05] MEDS: Losartan 50 MG Tab PO SCH (08:50)
[2022-10-05] MEDS ORDERED: Magnesium Sulfate/Water 2 GM in Premix Bag 1 BAG IV ONE (12:30)
[2022-10-06] MEDS: Albuterol 90 MCG/6.7 GM Inhaler INH SCH ×4 (07:21→21:51)
[2022-10-06] MEDS: Dutasteride 0.5 MG Cap PO SCH (10:04)
[2022-10-06] MEDS: Bumetanide 2.5 MG/10 ML MDV IVPUSH SCH ×2 (10:04→19:49)
[2022-10-06] MEDS: Gabapentin 400 MG Cap PO SCH ×3 (10:05→21:52)
[2022-10-06] MEDS: Enoxaparin 40 MG/0.4 ML Syringe SUBCUT SCH (10:05)
[2022-10-06] MEDS: Trospium 20 MG Tab PO SCH ×2 (10:05→21:52)
[2022-10-06] MEDS: Losartan 50 MG Tab PO SCH (10:06)
[2022-10-06] MEDS: Potassium Chloride 20 MEQ Tab.ER PO SCH ×2 (10:06→21:52)
[2022-10-06] MEDS: Alfuzosin 10 MG Tab.ER PO SCH (10:07)
[2022-10-06] MEDS: Metoprolol Succinate 50 MG Tab.ER PO SCH (10:07)
[2022-10-06] MEDS ORDERED: Loperamide 2 MG Cap PO PRN (14:52)
[2022-10-07] MEDS: Albuterol 90 MCG/6.7 GM Inhaler INH SCH ×4 (08:01→20:42)
[2022-10-07] MEDS: Bumetanide 2.5 MG/10 ML MDV IVPUSH SCH ×2 (08:04→15:25)
[2022-10-07] MEDS: Losartan 50 MG Tab PO SCH (08:27)
[2022-10-07] MEDS: Enoxaparin 40 MG/0.4 ML Syringe SUBCUT SCH (08:27)
[2022-10-07] MEDS: Dutasteride 0.5 MG Cap PO SCH (08:27)
[2022-10-07] MEDS: Alfuzosin 10 MG Tab.ER PO SCH (08:27)
[2022-10-07] MEDS: Metoprolol Succinate 50 MG Tab.ER PO SCH (08:27)
[2022-10-07] MEDS: Gabapentin 400 MG Cap PO SCH ×3 (08:27→20:41)
[2022-10-07] MEDS: Potassium Chloride 20 MEQ Tab.ER PO SCH ×3 (08:27→20:49)
[2022-10-07] MEDS: Trospium 20 MG Tab PO SCH ×2 (08:28→20:41)
[2022-10-07] MEDS: Magnesium Oxide 400 MG Tab PO SCH ×2 (10:47→20:41)
[2022-10-08] MEDS: Bumetanide 2.5 MG/10 ML MDV IVPUSH SCH ×2 (05:55→16:08)
[2022-10-08] MEDS: Albuterol 90 MCG/6.7 GM Inhaler INH SCH ×5 (07:25→20:49)
[2022-10-08] MEDS: Losartan 50 MG Tab PO SCH (09:00)
[2022-10-08] MEDS: Dutasteride 0.5 MG Cap PO SCH (09:00)
[2022-10-08] MEDS: Metoprolol Succinate 50 MG Tab.ER PO SCH (09:00)
[2022-10-08] MEDS: Magnesium Oxide 400 MG Tab PO SCH ×2 (09:01→20:49)
[2022-10-08] MEDS: Potassium Chloride 20 MEQ Tab.ER PO SCH (09:01)
[2022-10-08] MEDS: Enoxaparin 40 MG/0.4 ML Syringe SUBCUT SCH (09:01)
[2022-10-08] MEDS: Gabapentin 400 MG Cap PO SCH ×3 (09:01→20:49)
[2022-10-08] MEDS: Alfuzosin 10 MG Tab.ER PO SCH (09:02)
[2022-10-08] MEDS: Trospium 20 MG Tab PO SCH ×2 (09:02→20:50)
[2022-10-08] MEDS: Potassium Chloride 10 MEQ Cap.ER (PTOM) PO SCH (16:08)
[2022-10-09] MEDS: Albuterol 90 MCG/6.7 GM Inhaler INH SCH ×4 (07:20→20:37)
[2022-10-09] MEDS: Potassium Chloride 10 MEQ Cap.ER (PTOM) PO SCH ×2 (08:09→17:17)
[2022-10-09] MEDS: Dutasteride 0.5 MG Cap PO SCH (08:09)
[2022-10-09] MEDS: Gabapentin 400 MG Cap PO SCH ×3 (08:10→20:37)
[2022-10-09] MEDS: Enoxaparin 40 MG/0.4 ML Syringe SUBCUT SCH (08:11)
[2022-10-09] MEDS: Metoprolol Succinate 50 MG Tab.ER PO SCH (08:12)
[2022-10-09] MEDS: Losartan 50 MG Tab PO SCH (08:13)
[2022-10-09] MEDS: Alfuzosin 10 MG Tab.ER PO SCH (08:13)
[2022-10-09] MEDS: Trospium 20 MG Tab PO SCH ×2 (08:14→20:37)
[2022-10-09] MEDS: Magnesium Oxide 400 MG Tab PO SCH ×2 (08:15→20:37)
[2022-10-09] MEDS: Bumetanide 2.5 MG/10 ML MDV IVPUSH SCH ×2 (10:24→17:21)
[2022-10-10] MEDS: Bumetanide 2.5 MG/10 ML MDV IVPUSH SCH ×2 (06:07→15:33)
[2022-10-10] MEDS: Albuterol 90 MCG/6.7 GM Inhaler INH SCH ×4 (06:58→20:21)
[2022-10-10] MEDS: Potassium Chloride 10 MEQ Cap.ER (PTOM) PO SCH ×2 (10:48→16:31)
[2022-10-10] MEDS: Dutasteride 0.5 MG Cap PO SCH (10:49)
[2022-10-10] MEDS: Losartan 50 MG Tab PO SCH (10:49)
[2022-10-10] MEDS: Enoxaparin 40 MG/0.4 ML Syringe SUBCUT SCH (10:53)
[2022-10-10] MEDS: Magnesium Oxide 400 MG Tab PO SCH ×2 (10:53→20:21)
[2022-10-10] MEDS: Metoprolol Succinate 50 MG Tab.ER PO SCH (10:54)
[2022-10-10] MEDS: Gabapentin 400 MG Cap PO SCH ×3 (10:54→20:21)
[2022-10-10] MEDS: Trospium 20 MG Tab PO SCH ×2 (10:54→20:22)
[2022-10-10] MEDS: Alfuzosin 10 MG Tab.ER PO SCH (10:55)
[2022-10-11] MEDS: Albuterol 90 MCG/6.7 GM Inhaler INH SCH ×2 (07:22→10:39)
[2022-10-11] MEDS: Dutasteride 0.5 MG Cap PO SCH (08:26)
[2022-10-11] MEDS: Potassium Chloride 10 MEQ Cap.ER (PTOM) PO SCH (08:26)
[2022-10-11] MEDS: Magnesium Oxide 400 MG Tab PO SCH (08:26)
[2022-10-11] MEDS: Alfuzosin 10 MG Tab.ER PO SCH (08:26)
[2022-10-11] MEDS: Gabapentin 400 MG Cap PO SCH ×2 (08:26→14:21)
[2022-10-11] MEDS: Trospium 20 MG Tab PO SCH (08:27)
[2022-10-11] MEDS: Metoprolol Succinate 50 MG Tab.ER PO SCH (08:27)
[2022-10-11] MEDS: Enoxaparin 40 MG/0.4 ML Syringe SUBCUT SCH (08:28)
[2022-10-11] MEDS: Losartan 50 MG Tab PO SCH (08:28)
[2022-10-11] MEDS ORDERED: Bumetanide 1 MG Tab PO SCH (09:00)
[2022-10-11 10:11] VITALS: BP 99/72; PULSE 81
== END 2022-10-11 14:45 | disposition home or self-care (01) | DRG 291 ==
LOC: JP.ED 13:18 → JP.MS 15:34
PROVIDERS: ADMIT Hospitalist; ATTEND Internal Medicine
DX: I11.0 Hypertensive heart disease with heart failure (principal); I50.23 Acute on chronic systolic (congestive) heart failure; I48.11 Longstanding persistent atrial fibrillation; C67.9 Malignant neoplasm of bladder, unspecified; H54.7 Unspecified visual loss; J44.9 Chronic obstructive pulmonary disease, unspecified; Z20.822 Contact with and (suspected) exposure to COVID-19; M19.90 Unspecified osteoarthritis, unspecified site; M54.2 Cervicalgia; G89.29 Other chronic pain; I48.91 Unspecified atrial fibrillation; G47.33 Obstructive sleep apnea (adult) (pediatric); E55.9 Vitamin D deficiency, unspecified; E53.8 Deficiency of other specified B group vitamins; F17.200 Nicotine dependence, unspecified, uncomplicated; Z79.899 Other long term (current) drug therapy
CPT/HCPCS: 0241U; 36415; 71045; 71045-26; 80048; 80053; 81001; 83735; 83880; 84145; 84443; 85025; 93005; 93010; 93306; 94640; 96374; 97110-GP; 97161-GP; 97530-GP; 99285; 99285-25; A9270-GY; J1650; J1940; J3475; J3490

== ENCOUNTER 2022-11-11 19:57 | Emergency (ER) | payer MEDICARE, MEDICAID ==
[2022-11-11 22:31] LABS: BASOPHILS ABSOLUTE AUTO 0.04 K/uL (0.00-0.10); EOSINOPHILS ABSOLUTE AUTO 0.07 K/uL (0.00-0.40); EOSINOPHILS PERCENT AUTO 1.7 % (0.0-5.4); HEMOGLOBIN 9.7 g/dL (12.9-16.9); IMMATURE GRAN PERCENT AUTO 0.2 % (0.0-0.7); LYMPHOCYTES ABSOLUTE AUTO 1.03 K/uL (0.8-3.3); LYMPHOCYTES PERCENT AUTO 25.7 % (11.4-47.7); MEAN CORPUSCULAR HEMOGLOBIN 21.8 pg (31.6-35.5); MEAN CORPUSCULAR HGB CONC 30.3 g/dL (31.6-35.5); MEAN CORPUSCULAR VOLUME 71.9 fL (81.4-99.0); MONOCYTES ABSOLUTE AUTO 0.64 K/uL (0.20-0.90); NEUTROPHILS ABSOLUTE AUTO 2.22 K/uL (1.0-7.6); NEUTROPHILS PERCENT AUTO 55.4 % (40.0-78.1); PLATELET COUNT,PLT 182 K/uL (130-375)
[2022-11-11 22:47] VITALS: BP 98/64; PULSE 78
[2022-11-11 22:50] LABS: IMMATURE GRAN ABSOLUTE AUTO 0.01 K/uL (0.00-0.23); RED BLOOD CELL COUNT 4.45 M/uL (4.14-5.76)
[2022-11-11 22:51] LABS: A/G RATIO 0.8 (1.2-2.2); ALANINE AMINOTRANSFERASE,ALT 16 U/L (12-78); ALBUMIN 2.7 g/dL (3.4-5.0); ALKALINE PHOSPHATASE 123 U/L (46-116); ASPARTATE AMNIOTRANSFERASE,AST 14 U/L (15-37); BILIRUBIN TOTAL 0.5 mg/dL (0.2-1.0); BLOOD UREA NITROGEN,BUN 17 mg/dL (7-18); CALCIUM 8.1 mg/dL (8.5-10.1); CARBON DIOXIDE,CO2 27 mmol/L (21-32); CHLORIDE,CL 103 mmol/L (100-108); CREATININE 1.1 mg/dL (0.8-1.3); EST CRCL DRUG DOSING (CG) 62.44 mL/min; ESTIMATED GFR 75 mL/min (>60); GLUCOSE RANDOM 90 mg/dL (74-106); POTASSIUM,K 3.6 mmol/L (3.6-5.2); PROTEIN TOTAL,TP 6.3 g/dL (6.4-8.2); SODIUM,NA 138 mmol/L (140-148)
[2022-11-11 23:07] LABS: ANION GAP 11.6 mmol/L (5.0-14.0)
[2022-11-11 23:26] LABS: APPEARANCE,URINE CLEAR (CLEAR); BILIRUBIN,URINE NEGATIVE (NEGATIVE); COLOR,URINE YELLOW (YELLOW); GLUCOSE,URINE NEGATIVE (NEGATIVE); KETONES,URINE NEGATIVE (NEGATIVE); LEUKOCYTE ESTERASE,URINE NEGATIVE (NEGATIVE); NITRITE,URINE NEGATIVE (NEGATIVE); OCCULT BLOOD,URINE TRACE-INTACT (NEGATIVE); PROTEIN,URINE TRACE mg/dL (NEGATIVE)
[2022-11-11 23:36] LABS: AMORPHOUS SEDIMENT,URINE MANY; BACTERIA,URINE FEW; EPITHELIAL CELLS,URINE FEW; MUCUS,URINE NOT SEEN; RBC,URINE 0-5 (0-5); WBC,URINE 0-5 (0-5)
== END 2022-11-12 00:01 | disposition home or self-care (01) ==
LOC: JP.ED 19:57
DX: S81.812A Laceration without foreign body, left lower leg, initial encounter (principal); I48.91 Unspecified atrial fibrillation; I11.0 Hypertensive heart disease with heart failure; I50.9 Heart failure, unspecified; J44.9 Chronic obstructive pulmonary disease, unspecified; E66.9 Obesity, unspecified; Z79.51 Long term (current) use of inhaled steroids; Z79.899 Other long term (current) drug therapy; Z20.822 Contact with and (suspected) exposure to COVID-19; W45.8XXA Other foreign body or object entering through skin, initial encounter
CPT/HCPCS: 36415; 80053; 81001; 85025; 99283; U0002

== ENCOUNTER 2022-11-27 11:06 | Emergency (ER) | payer MEDICARE, MEDICAID ==
[2022-11-27 11:55] VITALS: BP 153/104; PULSE 80
== END 2022-11-27 13:04 | disposition home or self-care (01) ==
LOC: JP.ED 11:06
DX: Z76.0 Encounter for issue of repeat prescription (principal); M25.511 Pain in right shoulder; M25.512 Pain in left shoulder; M79.671 Pain in right foot; M79.672 Pain in left foot; I11.0 Hypertensive heart disease with heart failure; I50.9 Heart failure, unspecified; I48.91 Unspecified atrial fibrillation; J44.9 Chronic obstructive pulmonary disease, unspecified; E66.9 Obesity, unspecified; Z68.31 Body mass index [BMI] 31.0-31.9, adult; Z79.899 Other long term (current) drug therapy
CPT/HCPCS: 99281

== ENCOUNTER 2023-02-23 00:43 | Emergency (ER) | payer MEDICARE, MEDICAID ==
[2023-02-23] MEDS ORDERED: Sodium Chloride 0.9% 10 ML Syringe FLUSH PRN (00:53)
[2023-02-23] MEDS ORDERED: Lactated Ringers 1,000 ML IV ONE (00:56)
[2023-02-23 01:05] LABS: BASOPHILS ABSOLUTE AUTO 0.08 K/uL (0.00-0.10); BASOPHILS PERCENT AUTO 1.8 % (0.1-1.3); EOSINOPHILS ABSOLUTE AUTO 0.04 K/uL (0.00-0.40); EOSINOPHILS PERCENT AUTO 0.9 % (0.0-5.4); HEMATOCRIT 36.4 % (38.4-49.7); IMMATURE GRAN ABSOLUTE AUTO 0.04 K/uL (0.00-0.23); IMMATURE GRAN PERCENT AUTO 0.9 % (0.0-0.7); LYMPHOCYTES ABSOLUTE AUTO 0.94 K/uL (0.8-3.3); LYMPHOCYTES PERCENT AUTO 20.6 % (11.4-47.7); MEAN CORPUSCULAR HEMOGLOBIN 20.4 pg (31.6-35.5); MEAN CORPUSCULAR HGB CONC 30.2 g/dL (31.6-35.5); MEAN CORPUSCULAR VOLUME 67.5 fL (81.4-99.0); MONOCYTES ABSOLUTE AUTO 0.58 K/uL (0.20-0.90); MONOCYTES PERCENT AUTO 12.7 % (3.3-12.6); NEUTROPHILS ABSOLUTE AUTO 2.89 K/uL (1.0-7.6); NEUTROPHILS PERCENT AUTO 63.1 % (40.0-78.1); PLATELET COUNT,PLT 242 K/uL (130-375); RED BLOOD CELL COUNT 5.39 M/uL (4.14-5.76); WHITE BLOOD CELL COUNT,WBC 4.6 K/uL (3.2-11.0)
[2023-02-23 01:26] LABS: A/G RATIO 0.8 (1.2-2.2); ALBUMIN 2.8 g/dL (3.4-5.0); BILIRUBIN TOTAL 0.9 mg/dL (0.2-1.0); BLOOD UREA NITROGEN,BUN 13 mg/dL (7-18); CALCIUM 8.6 mg/dL (8.5-10.1); CARBON DIOXIDE,CO2 26 mmol/L (21-32); CHLORIDE,CL 103 mmol/L (100-108); CREATININE 1.7 mg/dL (0.8-1.3); EST CRCL DRUG DOSING (CG) 39.96 mL/min; ESTIMATED GFR 44 mL/min (>60); GLUCOSE RANDOM 101 mg/dL (74-106); POTASSIUM,K 3.9 mmol/L (3.6-5.2); PROTEIN TOTAL,TP 6.4 g/dL (6.4-8.2); SODIUM,NA 138 mmol/L (140-148)
[2023-02-23 01:27] LABS: ALANINE AMINOTRANSFERASE,ALT 23 U/L (12-78); ALKALINE PHOSPHATASE 114 U/L (46-116); ANION GAP 12.9 mmol/L (5.0-14.0); ASPARTATE AMNIOTRANSFERASE,AST 29 U/L (15-37)
[2023-02-23 01:29] LABS: INR 1.4; PROTHROMBIN TIME 14.1 sec (9.2-10.6); PTT,PARTIAL THROMBOPLSTIN TIME 29.2 sec (21.8-27.3)
[2023-02-23] MEDS ORDERED: Prochlorperazine 10 MG/2 ML SDV IVPUSH ONE (01:36)
[2023-02-23] MEDS ORDERED: Metoprolol Succinate 50 MG Tab.ER PO ONE (01:36)
[2023-02-23 01:46] LABS: LACTIC ACID 2.7 mmol/L (0.4-2.0)
[2023-02-23] MEDS ORDERED: Bumetanide 1 MG Tab PO ONE (03:39)
[2023-02-23] MEDS ORDERED: Spironolactone 25 MG Tab PO ONE (03:39)
[2023-02-23 03:40] VITALS: BP 109/83; PULSE 106
== END 2023-02-23 04:22 | disposition home or self-care (01) ==
LOC: JP.ED 00:43
DX: F17.210 Nicotine dependence, cigarettes, uncomplicated (principal); E88.09 Other disorders of plasma-protein metabolism, not elsewhere classified; D50.9 Iron deficiency anemia, unspecified; R60.0 Localized edema; N17.9 Acute kidney failure, unspecified; F60.9 Personality disorder, unspecified; G47.33 Obstructive sleep apnea (adult) (pediatric); Z91.148 Patient's other noncompliance with medication regimen for other reason; Z98.84 Bariatric surgery status; Z20.822 Contact with and (suspected) exposure to COVID-19
CPT/HCPCS: 36415; 74176; 80053; 83605; 83690; 83735; 84145; 85025; 85610; 85730; 86140; 87040; 87086; 93005; 96361; 96374; 99284; A9270; J0780; J3490; J7120; U0002